=== PATIENT | male | born 1970 | race Caucasian/White ===

== ENCOUNTER 2018-10-12 22:15 | Observation (INO) ==
[2018-10-12 22:55] LABS: Hematocrit 39.5 % (37.5-50.1); Mean Corpuscular HGB Conc 32.9 g/dL (31.6-35.5); Mean Corpuscular Volume 88.2 fL (83.0-100.0); Mean Platelet Volume 9.6 fL (9.4-12.4); Platelet Count 257 K/mcL (140-400); Red Blood Count 4.48 M/mcL (4.19-5.50); Red Cell Distribution Width 14.9 % (11.5-14.5); White Blood Count 6.2 K/mcL (4.3-11.1)
[2018-10-12 23:18] LABS: BUN/Creatinine Ratio 18 (6-26); Blood Urea Nitrogen 14 mg/dL (6-20); Calcium 9.4 mg/dL (8.6-10.3); Carbon Dioxide 26 mEq/L (23-29); Chloride 102 mEq/L (98-107); Glucose 130 mg/dL (70-105); Osmolality,Calculated 288 (280-300); Potassium 3.5 mEq/L (3.5-5.1); Sodium 138 mEq/L (136-145); Troponin I < 0.03 ng/mL (< 0.04); eGFR For African Americans > 60 (> 60); eGFR For Non-African Americans > 60 (> 60)
[2018-10-12 23:21] LABS: Prothrombin Time 11.3 Seconds (9.4-12.1)
[2018-10-12 23:24] LABS: Activated Partial Thrombo Time 31.3 Seconds (26.0-36.0)
[2018-10-12] MEDS ORDERED: Aspirin 81 MG TAB.CHEW PO SCH (23:45)
[2018-10-13] MEDS: Aspirin 81 MG TAB.CHEW PO ONE (01:15)
[2018-10-13] MEDS ORDERED: Aspirin Enteric Coated 81 MG Tablet PO ONE (03:22)
[2018-10-13] MEDS ORDERED: *HR* Promethazine 25 MG/ML VIAL IVP PRN (05:17)
[2018-10-13] MEDS ORDERED: Naloxone 0.4 MG/ML INJ IVP PRN (05:17)
[2018-10-13] MEDS ORDERED: Acetaminophen 325 MG TABLET PO PRN (05:17)
[2018-10-13] MEDS ORDERED: 0.9 % Sodium Chloride 1,000 ML IVC SCH (05:30)
[2018-10-13] MEDS ORDERED: Nicotine 21 MG PATCH.TD24 TD SCH (05:38)
[2018-10-13] MEDS: Aspirin Enteric Coated 81 MG Tablet PO SCH (06:20)
[2018-10-13 11:16] LABS: Folate 13.6 ng/mL (3.0-16.0)
[2018-10-13 11:31] VITALS: BP 156/109
[2018-10-13] MEDS ORDERED: Cyanocobalamin (B-12) 1,000 MCG TABLET PO SCH (11:45)
== END 2018-10-13 15:24 | disposition left against medical advice (07) ==
LOC: EMEROOARM 22:15 → 2NENU 22:15 → SUATTDRO 10-13 00:24 → 2NENU 10-13 02:23
PROVIDERS: ADMIT Family Medicine; ATTEND Internal Medicine